=== PATIENT | female | born 1980 | race Caucasian/White ===

== ENCOUNTER 2018-06-18 11:06 | Day surgery (SDC) | payer OTHER ==
[2018-06-09 17:22] VITALS: BMI 40.4
[2018-06-18] VITALS (13 sets, daily range): BP systolic 100–142; BP diastolic 56–76; PULSE 66–76; RESP 15–27; Ht 170.2 cm; Wt 116.4 kg
[~2018-06-18] VITALS: Ht 170.2 cm; Wt 116.4 kg
[~2018-06-18 11:06] MED LIST: METOCLOPRAMIDE 10 MG INJ ONE
--- NOTE | 2018-06-18 11:40 | PREOPHP ---
DATE OF ADMISSION: 06/18/2018 HISTORY OF PRESENT ILLNESS: This is a 37-year-old lady, 0. Her last normal menstrual period was a few days prior to admission. She was admitted for D and C, hysteroscopy and suction curettage . This patient had been bleeding for the last 3 years. She has been put on control pills for the last 3 years by other physicians. She came to this office since 02/2018 and the ultrasound showe d fibroids. The patient is known to be anemic. She had an endometrial biopsy done in the office and because of the on and off bleeding in spite of her only to be 37 years old. 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 Because of such, she was admitted f or D and C, hysteroscopy and suction curettage. The procedures were explained to the patient and she understood everything totally. The risks, benefits, and alternatives were discussed with her as ernie merchant. PAST PERSONAL HISTORY: No history of diabetes, TB, asthma. ALLERGIES: NO ALLERGIES. SOCIAL HISTORY: Patient does not smoke. She does not drink. MEDICATIONS: She does not take any drugs except her iron. GYNECOLOGIC HISTORY: She had menarche at the age of 14, every 28 days interval, 3 to 4 days duration , and moderate in amount. FAMILY HISTORY: Father has heart disease and diabetes. Mother has hypertension. She is on iron. REVIEW OF SYSTEMS: CARDIOVASCULAR: No chest pains. RESPIRATORY: No cough. GASTROINTESTINAL: No diarrhea, no vomiting. GENITOURINARY: No dysuria. PHYSICAL EXAMINATION: GENERAL: Reveals a conscious, coherent lady and in no acute distress. VITAL SIGNS: Her blood pressure 120/80, pulse rate 80 per minute, respirations 16 per minute. BREASTS, HEART AND LUNGS: Within normal limits. ABDOMEN: Soft. No organomegaly. PELVIC: Revealed the cervix to be firm, uterus of normal size, and adnexa were negative for masses. RECTAL: Confirmed the pelvic findings. EXTREMITIES: No pedal edema. ADMITTING DIAGNOSIS: Menorrhagia and adenocarcinoma of the endometrium. PLAN: The patient was planned to have the above procedure. Dictated By: DARIN QUINONES/JANI Conf#: [id number] DID#: [id number]
--- NOTE | 2018-06-18 14:24 | PREAC ---
Date/Time of Note Date/Time of Note DATE: 06/18/18 TIME: 14:23 Anesthesia Eval and Record Evaluation Time Pre-Procedure Interview DATE: 06/18/18 TIME: 14:23 Age 38 Sex female NPO: 8 hrs Preoperative diagnosis endometrial CA Planned procedure D&C, hysteroscopy Past Medical History Past Medical History: Includes Cardio: HTN, Dyslipidemia Pulm: Sleep Apnea GI: Morbid obesity Surgery & Anesthesia Issues No known issue Meds Anticoagulation: No Beta Kolton within 24 hr: No Reason Beta Kolton not given: Pt. not on B-Kolton No Active Prescriptions or Reported Meds Current Medications Influenza Virus Vaccine Quadrival (Fluzone) 0.5 ml ONCE ONCE IM* ; Start 06/20/18 at 10:00; Stop 06/20/18 at 10:01 Meds reviewed: Yes Allergies Coded Allergies: No Known Allergy (Unverified , 06/18/18) Allergies Reviewed: Yes Labs/Studies Labs Reviewed: Reviewed by anesthesiologist test: Negative Pre-procedure Exam Last vitals Vital Signs Date Temp Pulse Resp B/P (MAP) Pulse Ox O2 O2 Flow FiO2 Time Delivery Rate 06/18/18 98.0 67 18 132/75 99 13:07 (94) Airway: Adequate mouth opening, Adequate thyromental dist Mallampati: Mallampati III Teeth: Normal Lung: Normal Heart: Normal ASA Physical Status ASA physical status: 3 Emergency: None Planned Anesthetic General/MAC: LMA Planned Pain Management Parenteral pain med Pre-operative Attestations Prior to commencing anesthesia and surgery, the patient was re-evaluated, there was verification of: *The patient's identity *The results of appropriate recent lab work and preoperative vital signs *The above evaluation not changing prior to induction *Anesthetic plan, risk benefits, alternative and complications discussed with patient/family; questions answered; patient/family understands, accepts and wishes to proceed. NICKOLAS MANTILLA MD Jun 18, 2018 14:24
[2018-06-18] MEDS ORDERED: FENTAnyl 50 MCG/ML VIAL IV PRN ×2 (14:30)
[2018-06-18] MEDS ORDERED: DIPHENHYDRAMINE 50 MG INJ IV PRN (14:30)
[2018-06-18] MEDS ORDERED: LEVALBUTEROL (NEB) 0.63 MG/3 ML AMP HHN PRN (14:30)
[2018-06-18] MEDS ORDERED: MEPERIDINE 25 MG INJ IV PRN (14:30)
[2018-06-18] MEDS ORDERED: hydrALAzine 20 MG INJ IV PRN (14:30)
[2018-06-18] MEDS ORDERED: ONDANSETRON 4 MG INJ IV PRN (14:30)
[2018-06-18] MEDS ORDERED: HYDROmorphONE 1 MG/5 ML IV SYRINGE IV PRN ×2 (14:30)
[2018-06-18] MEDS ORDERED: LABETALOL HCL 20MG INJ IV PRN (14:30)
[2018-06-18] MEDS ORDERED: FENTAnyl 50 MCG/ML VIAL ONE (14:58)
[2018-06-18] MEDS ORDERED: MIDAZOLAM 1 MG/ML 2 ML INJ ONE (14:58)
[2018-06-18] MEDS ORDERED: PROPOFOL 20 ML ONE (14:59)
[2018-06-18] MEDS ORDERED: ONDANSETRON 4 MG INJ ONE (14:59)
[2018-06-18] MEDS ORDERED: CEFAZOLIN 1 GM INJ ONE (14:59)
[2018-06-18] MEDS ORDERED: LIDOCAINE 2% (SDV) 5 ML INJ ONE (14:59)
--- NOTE | 2018-06-18 15:22 | SIPON ---
Date/Time of Note Date/Time of Note DATE: 06/18/18 TIME: 15:19 Operative Report Preoperative Diagnosis ADENOCARCINOMA OF UTERUS Postoperative Diagnosis ADENOCARCINOMA OF UTERUS PENDING PATHOLOGY Operation/Procedure Performed D&C HYSTEROSOCOPY SUCTION CURETTAGE Surgeon see signature line facility assistant LICENSED PRACTICAL VOCATIONAL NURSE Anesthesia: general Estimated blood loss: minimal Transfusion Required none Specimen ECC EMC SUCTION CURETTAGE Grafts/Implants none Complications none DARIN LLAMAS MD Jun 18, 2018 15:22
--- NOTE | 2018-06-18 15:26 | PAC ---
Date/Time of Note Date/Time of Note DATE: 06/18/18 TIME: 15:26 Post-Anesthesia Notes Post-Anesthesia Note Last documented vital signs Vital Signs Date Temp Pulse Resp B/P (MAP) Pulse Ox O2 O2 Flow FiO2 Time Delivery Rate 06/18/18 98.0 67 18 132/75 99 13:07 (94) Activity: WNL Respiratory function: WNL Cardiovascular function: WNL Mental status: Baseline Pain reasonably controlled: Yes Hydration appropriate: Yes Nausea/Vomiting absent: Yes NICKOLAS MANTILLA MD Jun 18, 2018 15:26
[2018-06-18] MEDS ORDERED: ACETAMINOPHEN 325 MG TAB PO PRN (15:30)
--- NOTE | 2018-06-19 05:19 | OPR ---
DATE OF OPERATION: 06/18/2018 PREOPERATIVE DIAGNOSIS: Adenocarcinoma of the uterus grade I, menorrhagia. POSTOPERATIVE DIAGNOSES: 1. Adenocarcinoma of the uterus grade I, menorrhagia. 2. Pending pathology report. SURGEON: Agueda Rodriguez MD KITCHEN AIDE: Franco sosa. ANESTHESIA: General. ANESTHESIOLOGIST: Dr. Salazar. OPERATION PERFORMED: Hysteroscopy, fractional dilatation and curettage, and suction curettage. OPERATIVE TECHNIQUE: Under general anesthesia, the patient was prepped and draped in the usual fashi on for vaginal surgery. Pelvic exam under anesthesia revealed the cervix to be firm, uterus about 8 weeks' size, and adnexa were negative for masses. Then, the heavy weight vaginal retractor was put i n place and the anterior lip of the cervix was grasped with an Allis clamp. Endocervical dilatation up to Hegar 6 was proceeded. Uterus was sounded to about 3.5 inches. Then, the hysteroscope was ins erted inside the uterine cavity. The lining of the uterus was noted to be very thick. Then endocerv ical curettage was done and a small amount of tissue was obtained. Endometrial curettage was done an d a lot of tissue was obtained. Suction tip size 6 was inserted inside the uterine cavity and suctio n curettage was done. A lot of uterine tissue was obtained. The uterus was intact during and after the procedure. The patient tolerated the procedure well. Estimated blood loss about 30 mL. Vital s igns were stable during and after the procedure. Dictated By: AGUEDA RODRIGUEZ MD NS/NTS Conf#: [id number] DID#: [id number] CC: AGUEDA RODRIGUEZ MD;*EndCC*
[2018-06-20] MEDS ORDERED: INFLUENZA VIRUS VACCINE 0.5 ML (DISPENSING) IM* ONE (10:00)
== END 2018-06-18 17:40 | disposition home or self-care (01) ==
LOC: SDS 11:06
PROVIDERS: ATTEND Obstetrics & Gynecology
DX: C54.1 Malignant neoplasm of endometrium (principal)
CPT/HCPCS: 58558; 84702; 84703; 86850; 86900; 86901; 88305; J0690; J2250; J2405; J2765; J3010